=== PATIENT | female | born 1985 | race Caucasian/White ===

== ENCOUNTER 2021-03-22 12:51 | Inpatient (IN) | payer MEDICAID ==
[~2021-03-22] VITALS: Ht 157.5 cm; Wt 44.0 kg
[2021-03-22] MEDS ORDERED: LORazepam 2 MG/ML VIAL IM ONE (14:30)
[2021-03-22] MEDS ORDERED: LORazepam 2 MG/ML VIAL ONE (14:34)
[2021-03-22 14:40] LABS: AMPHET/METH SCREEN,URINE NEGATIVE (NEGATIVE); BARBITURATE SCREEN, URINE NEGATIVE (NEGATIVE); BENZODIAZEPINES SCREEN,URINE NEGATIVE (NEGATIVE); CANNABINOID SCREEN,URINE NEGATIVE (NEGATIVE); COCAINE SCREEN,URINE NEGATIVE (NEGATIVE); METHADONE SCREEN, URINE NEGATIVE (NEGATIVE); OPIATE SCREEN,URINE NEGATIVE (NEGATIVE); PHENCYCLIDINE SCREEN,URINE NEGATIVE (NEGATIVE)
[2021-03-22 15:58] LABS: COVID AG,FIA SOURCE NASOPHARYNGEAL
[2021-03-22 16:09] LABS: BASOPHILS % (AUTO) 0.6 % (0.0-2.0); EOSINOPHILS % (AUTO) 0.2 % (1.0-6.0); HEMATOCRIT 40.6 % (36-46); HEMOGLOBIN 13.7 g/dL (12.0-16.0); LYMPHOCYTES # (AUTO) 1.8 K/uL (1.0-4.8); LYMPHOCYTES % (AUTO) 36.3 % (22.0-44.0); MEAN CORPUSCULAR HEMOGLOBIN 32.2 pg (26.0-34.0); MEAN CORPUSCULAR HGB CONC 33.7 G/dL (31.0-37.0); MEAN CORPUSCULAR VOLUME 95 fL (80-100); MONOCYTES # (AUTO) 0.2 K/uL (0.1-1.0); MONOCYTES % (AUTO) 4.2 % (2.0-9.0); NEUTROPHILS % (AUTO) 58.7 % (40.0-70.0); PLATELET COUNT (AUTO) 370 K/uL (150-450); RED BLOOD CELL COUNT(AUTO) 4.26 MIL/uL (4.00-5.20); RED CELL DISTRIBUTION WIDTH 14.3 % (11.5-14.5)
[2021-03-22 16:47] LABS: ANION GAP 13 mmol/L (8-16); CALCIUM, TOTAL 8.4 mg/dL (8.8-10.5); CARBON DIOXIDE 24 mmol/L (22-29); CHLORIDE 108 mmol/L (98-107); CREATININE 0.64 mg/dL (0.60-1.30); GLOMERULAR FILTR. RATE CALC > 60 mL/min (>60); GLUCOSE,RANDOM 87 mg/dL (70-110); POTASSIUM 3.2 mmol/L (3.5-5.1); SODIUM SERUM 145 mmol/L (136-145); UREA NITROGEN, BLOOD 6 mg/dL (7-18)
[2021-03-22 16:53] LABS: ALANINE AMINOTRANSFERASE 31 U/L (12-78); ALBUMIN 3.7 g/dL (3.4-5.0); ALKALINE PHOSPHATASE 80 U/L (46-116); ASPARTATE AMINOTRANSFERASE 30 U/L (15-37); BILIRUBIN,TOTAL 0.2 mg/dL (0.1-1.0); TOTAL PROTEIN, SERUM 7.1 g/dL (6.4-8.2)
[2021-03-22] MEDS ORDERED: NICOTINE 21 MG/24 HOUR PATCH TD ONE (18:15)
[2021-03-22 21:05] VITALS: BP 110/58
[2021-03-22] MEDS: LORazepam 2 MG TABLET PO PRN (21:56)
[2021-03-22] MEDS: ZOLPIDEM TARTRATE 10 MG TABLET PO PRN (21:56)
[2021-03-23] VITALS (9 sets, daily range): BP systolic 102–127; BP diastolic 52–80
[2021-03-23] MEDS: LORazepam 2 MG TABLET PO PRN (06:49)
[2021-03-23 07:42] LABS: CHOL/HDL RATIO 1.8 (3.9-5.7)
[2021-03-23] MEDS ORDERED: LOPERAMIDE HCL 2 MG CAPSULE PO PRN (08:00)
[2021-03-23] MEDS ORDERED: DOCUSATE SODIUM 100 MG CAPSULE PO PRN (08:00)
[2021-03-23] MEDS ORDERED: CloNIDine HCL 0.1 MG TABLET PO PRN (08:00)
[2021-03-23] MEDS ORDERED: GuaiFENesin/D-METHORPHAN [SUGAR-FREE] 200-20MG/10 ML SYRUP UDCUP PO PRN (08:00)
[2021-03-23] MEDS ORDERED: MAG HYDROX/AL HYDROX/SIMETH ES 30 ML SUSPENSION UDCUP PO PRN (08:00)
[2021-03-23] MEDS ORDERED: MAGNESIUM HYDROXIDE SUSPENSION 30 ML UDCUP PO PRN (08:00)
[2021-03-23] MEDS ORDERED: ALBUTEROL SULFATE HFA 90 MCG/PUFF 8 GM INHALER IH PRN (08:00)
[2021-03-23] MEDS ORDERED: ACETAMINOPHEN 325 MG TABLET PO PRN (08:00)
[2021-03-23] MEDS ORDERED: PETROLATUM,WHITE 28 GM JELLY TP PRN (08:00)
[2021-03-23] MEDS: HALOPERIDOL 5 MG TABLET PO PRN ×2 (08:26→16:16)
[2021-03-23] MEDS: IBUPROFEN 400 MG TABLET PO PRN (09:32)
[2021-03-23] MEDS ORDERED: POTASSIUM CHLORIDE 20 MEQ ER TABLET PO ONE (11:00)
[2021-03-23] MEDS ORDERED: CYANOCOBALAMIN 1,000 MCG/ML VIAL IM ONE (11:45)
[2021-03-23] MEDS ORDERED: LORazepam 2 MG TABLET PO PRN (11:45)
[2021-03-23] MEDS: MULTIVITAMINS WITH MINERALS, THERAPEUTIC TABLET PO SCH (12:31)
[2021-03-23] MEDS: FOLIC ACID 1 MG TABLET PO SCH (12:31)
[2021-03-23] MEDS: SERTRALINE HCL 50 MG TABLET PO SCH (12:32)
[2021-03-23] MEDS: NICOTINE 14 MG/24 HOUR PATCH TD PRN (12:51)
[2021-03-23] MEDS: THIAMINE 100 MG TABLET PO SCH (16:16)
[2021-03-23] MEDS: ZOLPIDEM TARTRATE 10 MG TABLET PO PRN (20:09)
[2021-03-24] VITALS (7 sets, daily range): BP systolic 116–129; BP diastolic 62–78
[2021-03-24] MEDS: FOLIC ACID 1 MG TABLET PO SCH (08:23)
[2021-03-24] MEDS: SERTRALINE HCL 50 MG TABLET PO SCH (08:23)
[2021-03-24] MEDS: THIAMINE 100 MG TABLET PO SCH ×3 (08:23→17:00)
[2021-03-24] MEDS: MULTIVITAMINS WITH MINERALS, THERAPEUTIC TABLET PO SCH (08:23)
[2021-03-24] MEDS: IBUPROFEN 400 MG TABLET PO PRN (08:23)
[2021-03-24] MEDS: LORazepam 2 MG TABLET PO SCH ×4 (08:25→20:54)
[2021-03-24] MEDS: LORazepam 2 MG TABLET PO PRN (12:52)
[2021-03-24] MEDS: HALOPERIDOL 5 MG TABLET PO PRN (16:21)
[2021-03-24] MEDS: ZOLPIDEM TARTRATE 10 MG TABLET PO PRN (20:54)
[2021-03-25 01:17] VITALS: BP 122/80
[2021-03-25] MEDS: LORazepam 2 MG TABLET PO PRN (01:45)
[2021-03-25 01:57] VITALS: BP 124/64
[2021-03-25] MEDS: LORazepam 2 MG TABLET PO SCH ×2 (08:21→12:11)
[2021-03-25] MEDS: SERTRALINE HCL 50 MG TABLET PO SCH (08:21)
[2021-03-25] MEDS: THIAMINE 100 MG TABLET PO SCH (08:28)
[2021-03-25] MEDS: FOLIC ACID 1 MG TABLET PO SCH (08:29)
[2021-03-25] MEDS: MULTIVITAMINS WITH MINERALS, THERAPEUTIC TABLET PO SCH (08:29)
[2021-03-25 08:47] VITALS: BP 107/71
[2021-03-25] MEDS ORDERED: SERT-439 PO (09:03)
[2021-03-25] MEDS: NICOTINE 14 MG/24 HOUR PATCH TD PRN (12:59)
[2021-03-26] MEDS ORDERED: LORazepam 1 MG TABLET PO PRN (07:00)
[2021-03-26] MEDS ORDERED: LORazepam 1 MG TABLET PO SCH (09:00)
[2021-03-27] MEDS ORDERED: LORazepam 1 MG TABLET PO PRN (07:00)
== END 2021-03-25 13:44 | disposition home or self-care (01) | DRG 885 ==
LOC: EMS 12:58 → B3A 18:00
DX: F33.3 Major depressive disorder, recurrent, severe with psychotic symptoms (principal); R45.851 Suicidal ideations; E44.0 Moderate protein-calorie malnutrition; Z68.1 Body mass index [BMI] 19.9 or less, adult; E87.6 Hypokalemia; Z20.822 Contact with and (suspected) exposure to COVID-19; F41.9 Anxiety disorder, unspecified; Z79.899 Other long term (current) drug therapy; Z87.891 Personal history of nicotine dependence
CPT/HCPCS: 80053; 80061; 84132; 85025; 87426; 99291; G0480; J2060; J3420